=== PATIENT | female | born 2000 | race Hispanic/Latino ===

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

== ENCOUNTER 2020-09-08 10:39 | Emergency (ER) | payer MEDICAID ==
[2020-09-08] MEDS ORDERED: IBUPROFEN 400 MG TABLET ONE (12:04)
[2020-09-08] MEDS ORDERED: IBUPROFEN 200 MG TAB ONE (12:05)
[2020-09-08] MEDS ORDERED: CYCLOBENZAPRINE HCL 10 MG TABLET ONE (12:05)
== END 2020-09-08 13:30 | disposition home or self-care (01) ==
LOC: EDH 10:39
DX: S27.892A Contusion of other specified intrathoracic organs, initial encounter (principal); F41.9 Anxiety disorder, unspecified; G43.909 Migraine, unspecified, not intractable, without status migrainosus; X58.XXXA Exposure to other specified factors, initial encounter; Y93.89 Activity, other specified; Y92.89 Other specified places as the place of occurrence of the external cause; Y99.8 Other external cause status
CPT/HCPCS: 81025

== ENCOUNTER 2021-12-09 07:10 | Day surgery (SDC) | payer MEDICAID ==
[2021-12-05 11:30] VITALS: BP 139/72
[2021-12-05 11:42] LABS: BASOPHILS % (AUTO) 0.4 % (0.0-5.0); EOSINOPHILS % (AUTO) 1.1 % (0.0-8.0); HEMATOCRIT 45.1 % (36-48); LYMPHOCYTES % (AUTO) 23.9 % (21.0-51.0); MEAN CORPUSCULAR HEMOGLOBIN 28.9 pg (27.0-33.0); MEAN CORPUSCULAR VOLUME 87.6 fL (79-99); MONOCYTES % (AUTO) 4.7 % (3.0-13.0); NEUTROPHILS % (AUTO) 69.6 % (40.0-77.0); PLATELET COUNT (AUTO) 328 K/uL (130-400); RED BLOOD CELL COUNT(AUTO) 5.15 MIL/uL (4.00-5.50); RED CELL DISTRIBUTION WIDTH 12.5 % (11.0-15.5); WHITE BLOOD COUNT (AUTO) 10.9 K/uL (4.8-10.8)
[2021-12-05 11:53] LABS: INR 1.03 (0.85-1.15); PROTHROMBIN TIME 11.2 SEC (9.6-11.6)
[2021-12-05 11:57] LABS: ALBUMIN 4.2 g/dL (3.5-5.0); BILIRUBIN,TOTAL 0.7 mg/dL (0.2-1.0); CREATININE 0.7 mg/dL (0.5-1.5); POTASSIUM 4.5 mmol/L (3.5-5.1); TOTAL PROTEIN, SERUM 8.8 g/dL (6.0-8.3)
[~2021-12-09] VITALS: Ht 205.7 cm; Wt 72.1 kg
[2021-12-09] VITALS (17 sets, daily range): BP systolic 107–126; BP diastolic 54–80
[2021-12-09] MEDS ORDERED: CEFAZOLIN SODIUM 1 GM VIAL IVP ONE (08:00)
[2021-12-09] MEDS ORDERED: 0.9%NACL 1000ML 1,000 ML IV SCH (08:00)
[2021-12-09] MEDS ORDERED: FAMOTIDINE 20MG VIAL IV ONE (08:23)
[2021-12-09] MEDS ORDERED: PROPOFOL 10 MG/ML 20ML VIAL IV ONE (08:25)
[2021-12-09] MEDS ORDERED: FENTANYL CITRATE PF 50 MCG/1 ML 2ML VIAL ONE (08:25)
[2021-12-09] MEDS ORDERED: LIDOCAINE PF 100MG/5ML (2%) SYRINGE 5ML ONE (08:29)
[2021-12-09] MEDS ORDERED: NOREPINEPHRINE BITARTRATE 1 MG/1 ML ML IV ONE (08:30)
[2021-12-09] MEDS ORDERED: ONDANSETRON 4MG INJ ONE (09:09)
[2021-12-09] MEDS ORDERED: MEPERIDINE-PF 25 MG/ML SYG ONE (09:24)
[2021-12-09] MEDS ORDERED: BUPIVACAINE/PF 0.25% 30ML VIAL IJ ONE (09:29)
== END 2021-12-09 11:35 | disposition home or self-care (01) ==
LOC: DAH 07:10
PROVIDERS: ATTEND Student in an Organized Health Care Education/Training Program
DX: D23.22 Other benign neoplasm of skin of left ear and external auricular canal (principal); Q18.1 Preauricular sinus and cyst; K21.9 Gastro-esophageal reflux disease without esophagitis; E11.9 Type 2 diabetes mellitus without complications; Z79.01 Long term (current) use of anticoagulants; Z79.899 Other long term (current) drug therapy; Z86.73 Personal history of transient ischemic attack (TIA), and cerebral infarction without residual deficits; Z83.3 Family history of diabetes mellitus; Z82.49 Family history of ischemic heart disease and other diseases of the circulatory system; Z79.890 Hormone replacement therapy; Z79.84 Long term (current) use of oral hypoglycemic drugs
CPT/HCPCS: 11441; 36415; 80053; 81025; 82948 ×2; 84703; 85025; 85610; 85730; 87635; 88304; 88312; A4215; A4221; A4222; A4223; A4452; A4663; A6260; C9803; J0690; J2405; J3010; J3490 ×3; J7030; S0020; S0028; J2001; J2175; J2704